=== PATIENT | female | born 1985 | race Caucasian/White ===

== ENCOUNTER 2018-09-04 10:22 | Day surgery (SDC) | payer OTHER ==
[~2018-09-04] VITALS: Ht 170.2 cm; Wt 64.1 kg
[~2018-09-04 10:22] MED LIST: CeFAZolin 2 GM/DEXTROSE 50 ML IV ONE; RINGERS SOLUTION,LACTATED 1,000 ML IV ONE
[2018-09-04] MEDS ORDERED: ONDANSETRON HCL 4 MG/2 ML VIAL IVP ONE (10:23)
[2018-09-04] MEDS ORDERED: DEXAMETHASONE SOD PHOS 4 MG/ML VIAL IVP ONE (10:23)
[2018-09-04] MEDS ORDERED: FentaNYL CITRATE-PF 100 MCG/2 ML VIAL IVP ONE (10:23)
[2018-09-04] MEDS ORDERED: LIDOCAINE/PF 2% 5 ML VIAL IM ONE (10:23)
[2018-09-04] MEDS ORDERED: ROCURONIUM BROMIDE 10 MG/ML 5 ML VIAL IVP ONE (10:23)
[2018-09-04] MEDS ORDERED: NEOSTIGMINE METHYLSULFATE 1 MG/ML 10 ML VIAL IVP ONE (10:23)
[2018-09-04] MEDS ORDERED: MIDAZOLAM HCL 2 MG/2 ML VIAL IVP ONE (10:23)
[2018-09-04] MEDS ORDERED: GLYCOPYRROLATE 0.2 MG/ML VIAL IM ONE (10:23)
[2018-09-04] MEDS ORDERED: PROPOFOL 1% 20 ML VIAL IVP ONE (10:23)
[2018-09-04 11:13] LABS: BASOPHILS % (AUTO) 1.2 % (0.0-2.0); EOSINOPHILS % (AUTO) 3.9 % (1.0-6.0); HEMATOCRIT 39.5 % (36-46); HEMOGLOBIN 12.9 g/dL (12.0-16.0); LYMPHOCYTES # (AUTO) 2.4 K/uL (1.0-4.8); LYMPHOCYTES % (AUTO) 47.1 % (22.0-44.0); MEAN CORPUSCULAR HEMOGLOBIN 29.9 pg (26.0-34.0); MEAN CORPUSCULAR HGB CONC 32.6 G/dL (31.0-37.0); MEAN CORPUSCULAR VOLUME 92 fL (80-100); MONOCYTES # (AUTO) 0.4 K/uL (0.1-1.0); NEUTROPHILS % (AUTO) 40.8 % (40.0-70.0); PLATELET COUNT (AUTO) 196 K/uL (150-450); RED BLOOD CELL COUNT(AUTO) 4.32 MIL/uL (4.00-5.20); RED CELL DISTRIBUTION WIDTH 13.3 % (11.5-14.5)
[2018-09-04] MEDS ORDERED: PROPOFOL 1000 MG/ISO-OSM 100 ML IV ONE (12:06)
[2018-09-04] MEDS ORDERED: LIDOCAINE 2%/EPI 1:200,000/PF 20 ML VIAL ONE (12:13)
[2018-09-04] MEDS ORDERED: BUPIVACAINE HCL/PF 0.5% 30 ML VIAL ONE (12:13)
[2018-09-04] MEDS ORDERED: HYDROmorphone 2 MG/ML SYRINGE IVP PRN (14:15)
[2018-09-04] MEDS ORDERED: IBUPROFEN 600 MG TABLET PO PRN (14:15)
[2018-09-04] MEDS ORDERED: MEPERIDINE-PF 25 MG/ML VIAL IVP PRN (14:15)
[2018-09-04] MEDS ORDERED: ACETAMINOPHEN 500 MG TABLET PO PRN (14:15)
[2018-09-04] MEDS ORDERED: FentaNYL CITRATE-PF 100 MCG/2 ML VIAL IVP PRN (14:15)
[2018-09-04] MEDS ORDERED: MEPERIDINE-PF 25 MG/ML VIAL ONE (14:21)
[2018-09-04] MEDS ORDERED: IBUPROFEN 800 MG TABLET PO PRN (14:30)
[2018-09-04] MEDS ORDERED: OXYGEN THERAPY IH SCH (20:00)
== END 2018-09-04 16:15 | disposition home or self-care (01) ==
LOC: SURGERY 10:22
PROVIDERS: ATTEND Surgery
DX: K42.0 Umbilical hernia with obstruction, without gangrene (principal); F17.210 Nicotine dependence, cigarettes, uncomplicated; Z98.890 Other specified postprocedural states
CPT/HCPCS: 36415; 49587; 84703; 85025; J0690; J1100; J2175; J2250; J2405; J2704 ×2; J3010; J3490 ×4; J7120; 88302